=== PATIENT | male | born 1995 | race African-American/Black ===

== ENCOUNTER 2023-09-21 10:21 | Emergency (ER) | payer OTHER ==
[~2023-09-21] VITALS: Ht 175.3 cm; Wt 94.3 kg
[2023-09-21] MEDS ORDERED: ACETAMINOPHEN ES 500 MG TABLET ONE (10:51)
[2023-09-21] MEDS: ACETAMINOPHEN ES 500 MG TABLET PO ONE (11:05)
[2023-09-21] MEDS ORDERED: ACET-2030 PO (12:32)
[2023-09-21] MEDS: IBUPROFEN 400 MG TABLET PO ONE (13:00)
[2023-09-21] MEDS ORDERED: IBUPROFEN 400 MG TABLET ONE (13:05)
[2023-09-21 14:09] VITALS: BP 108/69; TEMP 97.8; O2SAT 99
== END 2023-09-21 14:10 | disposition home or self-care (01) ==
LOC: ER 10:32
DX: S06.0X0A Concussion without loss of consciousness, initial encounter (principal); S01.111A Laceration without foreign body of right eyelid and periocular area, initial encounter; Y04.0XXA Assault by unarmed brawl or fight, initial encounter; Y93.89 Activity, other specified; Y92.89 Other specified places as the place of occurrence of the external cause; Y99.8 Other external cause status
CPT/HCPCS: 70450-TC; 70486-TC; 82962-TC